=== PATIENT | male | born 2000 | race Caucasian/White ===

== ENCOUNTER 2022-12-07 23:47 | Emergency (ER) | payer OTHER ==
[~2022-12-07] VITALS: Ht 175.3 cm; Wt 99.8 kg
[~2022-12-07 23:47] MED LIST: VENTOLIN HFA18 GM INH
--- OUTSIDE RECORDS SUMMARY | 2022-12-07 23:56 | XMS ---
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 Dylan VISIT COUNT (12 MO.) [address] [facility] [address] TOTAL 9 NOTE: Visits indicate total known visits. ED/UCC VISIT TRACKING (12 MO.) 12/07/2022 23:49 [facility] [place] TYPE: Emergency COMPLAINT: - R TOE INJ 12/01/2022 20:02 [facility] [place] TYPE: Emergency COMPLAINT: - SOB DIAGNOSES: - Acute upper respiratory infection, unspecified - Contact with and (suspected) exposure to COVID-19 - Shortness of breath 09/19/2022 23:56 [facility] [employer] [place] TYPE: Emergency DIAGNOSES: - Suicidal ideations - MENTAL HEALTH 08/17/2022 15:13 [facility] [place] TYPE: Emergency COMPLAINT: - MEDICAL CLEARANCE DIAGNOSES: - Contact with and (suspected) exposure to COVID-19 - Suicidal ideations 07/20/2022 20:44 [employer] [place] TYPE: Emergency DIAGNOSES: - Other visual disturbances - EYE SWELLING LOST VISION 06/09/2022 10:33 [facility] [place] TYPE: Emergency DIAGNOSES: - Contusion of right hand, initial encounter - r hand injury [facility] 07[facility] DIAGNOSES: - Influenza due to other identified influenza virus with other respiratory manifestations - FEVER [facility] DIAGNOSES: - Alcohol abuse with intoxication, unspecified - Dizziness and giddiness - Dizziness - Dizzy - Letter for School/Work 12/13/2021 01:46 [facility] TYPE: Emergency DIAGNOSES: - Sprain of unspecified ligament of right ankle, initial encounter - Ankle injury INPATIENT VISIT TRACKING (12 MO.) 08/19/2022 12:56 [facility] TYPE: Psychiatric Services DIAGNOSES: 0. Major depressive disorder, recurrent severe without psychotic features 0. Unspecified mood [affective] disorder 0. Unspecified mood [affective] disorder 0. Unspecified mood [affective] disorder 0. Unspecified mood [affective] disorder 0. Unspecified mood [affective] disorder 0. Unspecified mood [affective] disorder 0. Unspecified mood [affective] disorder 0. Unspecified mood [affective] disorder 0. Unspecified mood [affective] disorder 0. Unspecified mood [affective] disorder 0. Unspecified mood [affective] disorder 0. Unspecified mood [affective] disorder 0. Unspecified mood [affective] disorder 0. Unspecified mood [affective] disorder 0. Unspecified mood [affective] disorder 1. Unspecified mood [affective] disorder 1. Unspecified mood [affective] disorder 1. Unspecified mood [affective] disorder 1. Unspecified mood [affective] disorder 1. Unspecified mood [affective] disorder 1. Unspecified mood [affective] disorder 1. Unspecified mood [affective] disorder 1. Unspecified mood [affective] disorder 1. Unspecified mood [affective] disorder 1. Unspecified mood [affective] disorder 1. Unspecified mood [affective] disorder 1. Unspecified mood [affective] disorder 1. Unspecified mood [affective] disorder 1. Unspecified mood [affective] disorder 1. Unspecified mood [affective] disorder 2. Nicotine dependence, cigarettes, uncomplicated 2. Other seasonal allergic rhinitis 2. Suicidal ideations [email or web address]
[2022-12-08 00:37] VITALS: BP 119/72
== END 2022-12-08 00:39 | disposition home or self-care (01) ==
LOC: ED 23:47
DX: S91.112A Laceration without foreign body of left great toe without damage to nail, initial encounter (principal); W25.XXXA Contact with sharp glass, initial encounter; Z23 Encounter for immunization
CPT/HCPCS: 90715